=== PATIENT | female | born 1955 | race Caucasian/White ===

== ENCOUNTER 2017-11-14 10:49 | Outpatient (CLI) | payer OTHER | END 2017-11-14 10:50 | disposition home or self-care (01) | LOC: BICMAMMO 10:49 | PROVIDERS: ATTEND Family Medicine | DX: Z12.31 Encounter for screening mammogram for malignant neoplasm of breast (principal); R92.1 Mammographic calcification found on diagnostic imaging of breast | CPT/HCPCS: 77063; 77067 ==

== ENCOUNTER 2018-11-15 08:44 | Outpatient (CLI) | payer OTHER | END 2018-11-15 08:45 | disposition home or self-care (01) | LOC: BICMAMMO 08:44 | PROVIDERS: ATTEND Family Medicine | DX: Z12.31 Encounter for screening mammogram for malignant neoplasm of breast (principal) | CPT/HCPCS: 77063; 77067 ==

== ENCOUNTER 2019-11-21 10:46 | Outpatient (CLI) | payer OTHER ==
--- NOTE | 2019-11-21 11:10 | MMO ---
Bilateral MAMMO Bilat Screen [facility]. CLINICAL HISTORY: Patient is 64 years old and is seen for screening. The patient has no family history of breast cancer. The patient has no personal history of cancer. VIEWS: The views performed were: bilateral craniocaudal with tomosynthesis and bilateral mediolateral oblique with tomosynthesis. FILMS COMPARED: The present examination has been compared to prior imaging studies performed at [facility] on 11/14/2017 and 11/15/2018, and at [facility] on 10/29/2015 and 11/01/2016. This study has been interpreted with the assistance of computer-aided detection. MAMMOGRAM FINDINGS: The breasts are heterogeneously dense, which could obscure a lesion on mammography. There are no suspicious masses, suspicious calcifications, or new areas of architectural distortion. IMPRESSION: THERE IS NO MAMMOGRAPHIC EVIDENCE OF MALIGNANCY. A ROUTINE FOLLOW-UP MAMMOGRAM IN 1 YEAR IS RECOMMENDED. THE RESULTS OF THIS EXAM WERE SENT TO THE PATIENT. ACR BI-RADS Category 1 - Negative MAMMOGRAPHY NOTE: 1. A negative mammogram report should not delay a biopsy if a dominant of clinically suspicious mass is present. 2. Approximately 10% to 15% of breast cancers are not detected by mammography. 3. Adenosis and dense breasts may obscure an underlying neoplasm. Reported by: DORA ALCAZAR MD Electonically Signed: [id number]
== END 2019-11-21 10:47 | disposition home or self-care (01) ==
LOC: BICMAMMO 10:46
PROVIDERS: ATTEND Family Medicine
DX: Z12.31 Encounter for screening mammogram for malignant neoplasm of breast (principal)
CPT/HCPCS: 77063; 77067

== ENCOUNTER 2019-11-22 11:32 | Day surgery (SDC) | payer OTHER ==
[2019-11-21 09:34] VITALS: BMI 20.2
[~2019-11-22 11:32] MED LIST: Lidocaine 1% PF 5 ML VIAL ONE; PROPOFOL 200 MG/20 ML VIAL ONE
--- NOTE | 2019-11-22 16:07 | OP ---
DATE OF PROCEDURE: 11/22/2019 DESCRIPTION OF PROCEDURE: Colonoscopy with snare polypectomy. PREPROCEDURE DIAGNOSIS: Colon cancer screening. POSTPROCEDURE DIAGNOSES: 1. Exam to cecum; good bowel preparation. 2. Diffusely redundant colon. 3. 5 to 6 mm sessile polyp in the distal sigmoid colon, removed by cold snare polypectomy. 4. Hypertrophied anal papilla. 5. Small internal hemorrhoids. 6. Otherwise, normal colonoscopy. DESCRIPTION OF PROCEDURE: Written informed consent was obtained. The patient was brought to the endoscopy suite. Total intravenous anesthesia was administered by Ms. Maribel Hinton CRNA. The patient was placed in the left lateral decubitus position. A digital rectal exam revealed small perianal tags. A Pentax video colonoscope was inserted through the anal canal and advanced under direct visualization to the cecum. Position in the cecum was verified by clear identification of the appendiceal orifice and the ileocecal valve. Transillumination also confirmed position of the tip of the scope in the cecum. The quality of the bowel preparation was good. Endoscopic findings revealed a diffusely redundant colon of moderate severity. A small sessile polyp in the distal sigmoid colon, about 5 to 6 mm in diameter, was identified and removed by cold snare technique. The tissue was retrieved for histology. No other synchronous polyps were identified. In the rectum, retroflexed view demonstrated small internal hemorrhoids and hypertrophied anal papilla. The colon was decompressed as the colonoscope was removed from the patient. She was transferred to the Day Stay surgery area for postprocedure monitoring. There were no immediate complications. RECOMMENDATIONS: 1. Await polyp results. 2. Ask the patient to call me in 1 week for polyp results. 3. Resume previous diet and medications. 4. Pending pathology results, we would recommend repeating colonoscopy in 5 years. 5. Sitz baths 3 times daily as needed for hemorrhoids. 6. Follow up in GI Clinic as needed. Job ID: [id number]
== END 2019-11-22 15:00 | disposition home or self-care (01) ==
LOC: SDC 11:32
PROVIDERS: ATTEND Internal Medicine Gastroenterology
PROC: 0DBN8ZZ Excision of Sigmoid Colon, Via Natural or Artificial Opening Endoscopic (ICD-10-PCS; principal; 2019-11-22)
DX: Z12.11 Encounter for screening for malignant neoplasm of colon (principal); D12.5 Benign neoplasm of sigmoid colon; K64.8 Other hemorrhoids; K62.89 Other specified diseases of anus and rectum; Q43.8 Other specified congenital malformations of intestine; Z83.71 Family history of colonic polyps
CPT/HCPCS: 88305; J2001; J2704

== ENCOUNTER 2020-11-24 13:01 | Outpatient (CLI) | payer MEDICARE ==
--- NOTE | 2020-11-24 15:06 | MMO ---
Bilateral MAMMO Bilat Screen [facility]. CLINICAL HISTORY: Patient is 65 years old and is seen for screening. The patient has no family history of breast cancer. The patient has no personal history of cancer. VIEWS: The views performed were: bilateral craniocaudal with tomosynthesis and bilateral mediolateral oblique with tomosynthesis. FILMS COMPARED: The present examination has been compared to prior imaging studies performed at [facility] on 11/14/2017, 11/15/2018 and 11/21/2019, and at [facility] on 11/01/2016. This study has been interpreted with the assistance of computer-aided detection. MAMMOGRAM FINDINGS: The breasts are heterogeneously dense, which could obscure a lesion on mammography. There are no suspicious masses, suspicious calcifications, or new areas of architectural distortion. IMPRESSION: THERE IS NO MAMMOGRAPHIC EVIDENCE OF MALIGNANCY. A ROUTINE FOLLOW-UP MAMMOGRAM IN 1 YEAR IS RECOMMENDED. THE RESULTS OF THIS EXAM WERE SENT TO THE PATIENT. ACR BI-RADS Category 1 - Negative MAMMOGRAPHY NOTE: 1. A negative mammogram report should not delay a biopsy if a dominant of clinically suspicious mass is present. 2. Approximately 10% to 15% of breast cancers are not detected by mammography. 3. Adenosis and dense breasts may obscure an underlying neoplasm. Reported by: ANDRES SANCHEZ MD Electonically Signed: [id number]
== END 2020-11-24 13:02 | disposition home or self-care (01) ==
LOC: BICMAMMO 13:01
PROVIDERS: ATTEND Family Medicine
DX: Z12.31 Encounter for screening mammogram for malignant neoplasm of breast (principal)
CPT/HCPCS: 77063; 77067

== ENCOUNTER 2021-11-25 09:57 | Outpatient (CLI) | payer MEDICARE, OTHER | END 2021-11-25 09:58 | disposition home or self-care (01) | LOC: BICMAMMO 09:57 | PROVIDERS: ATTEND Family Medicine | DX: Z12.31 Encounter for screening mammogram for malignant neoplasm of breast (principal) | CPT/HCPCS: 77063; 77067 ==

== ENCOUNTER 2022-12-06 09:43 | Outpatient (CLI) | payer MEDICARE, OTHER | END 2022-12-06 09:44 | disposition home or self-care (01) | LOC: BICMAMMO 09:43 | PROVIDERS: ATTEND Family Medicine | DX: Z12.31 Encounter for screening mammogram for malignant neoplasm of breast (principal); M81.0 Age-related osteoporosis without current pathological fracture | CPT/HCPCS: 77063; 77067; 77080 ==

== ENCOUNTER 2023-12-14 10:45 | Outpatient (CLI) | payer MEDICARE, OTHER | END 2023-12-14 10:46 | disposition home or self-care (01) | LOC: BICMAMMO 10:45 | PROVIDERS: ATTEND Family Medicine | DX: Z12.31 Encounter for screening mammogram for malignant neoplasm of breast (principal) | CPT/HCPCS: 77063; 77067 ==